=== PATIENT | male | born 2000 | race Caucasian/White ===

== ENCOUNTER 2021-06-07 15:24 | Emergency (ER) | payer BC, OTHER ==
[~2021-06-07] VITALS: Ht 172.7 cm; Wt 59.0 kg
[2021-06-07 15:30] VITALS: BP 139/68
--- NOTE | 2021-06-07 15:49 | ED Neurological Problem ---
General Chief Complaint: Neurological Problems Stated Complaint: FACE NUMBNESS Source: patient Exam Limitations: no limitations History of Present Illness Date Seen by Provider: Jun 07, 2021 Time Seen by Provider: 15:34 Initial Comments 21-year-old male presents with right-sided facial numbness, occurring today while at work. Denies any facial weakness. History of present illness patient midst to the past several months of having intermittent facial numbness of the right or left side of his face, occasionally both sides of his face that lasted less than 30 minutes, often, but not always occurring after using marijuana. His initial episode occurred after using acid. Denies any weakness, difficulty speaking or swallowing, any headache, loss of weight or incoordination. Denies any visual changes. No other significant past medical history. Allergies and Home Medications Patient Home Medication List Home Medication List Reviewed: Yes Review of Systems Review of Systems Constitutional: No dizziness, No fever, No malaise, No weakness Eyes: No Symptoms Reported Ears, Nose, Mouth, Throat: no symptoms reported Respiratory: No cough, No short of breath Cardiovascular: No chest pain, No edema, No palpitations Gastrointestinal: No abdominal pain, No nausea, No vomiting Musculoskeletal: No back pain, No joint pain, No neck pain Psychiatric/Neurological: Denies Emotional Problems, Denies Headache; Numbness, Tingling; Denies Weakness Past Auzyvnw-Vbhwdu-Mzwymz Hx Patient Social History Tobacco Use?: No Smoking Status: Never a Smoker Substance use?: Yes Substance type: Marijuana, Other (acid) Alcohol Use?: No Pt feels they are or have been: No Physical Exam Vital Signs Vital Signs - First Documented 06/07/21 15:30 Temp 36.6 Pulse 85 Resp 16 B/P (MAP) 139/68 (91) Pulse Ox 98 O2 Delivery Room Air Capillary Refill : Height, Weight, BMI Height: '" Weight: lbs. oz. kg; BMI Method: General Appearance: WD/WN, no apparent distress HEENT: PERRL/EOMI, normal ENT inspection Neck: non-tender, supple Respiratory: chest non-tender, lungs clear Cardiovascular: regular rate, rhythm, no JVD Gastrointestinal: normal bowel sounds, non tender, soft Back: normal inspection, no CVA tenderness Extremities: normal range of motion, non-tender Neurologic/Psychiatric: no motor/sensory deficits, alert, normal mood/affect, oriented x 3 Crainal Nerves: normal hearing, normal speech, PERRL, abnormal eye position; No facial asymmetry, No facial droop, No facial paresthesias, No facial weakness, No gaze palsy Coordination/Gait: normal finger to nose, normal gait Motor/Sensory: no motor deficit, no sensory deficit, no pronator drift Skin: normal color, warm/dry Stroke NIH Stroke Scale Assessment Select: Initial Level of Consciousness: 0=Alert (0), Level of Consciousness-Questions: 0=Answers both month/age (0), LOC Commands: 0=Performs both tasks (0), Gaze: Normal (0), Visual Mckay: 0=No visual loss (0), Facial Movement (Facial Paresis): 0=Normal symmetrical mnt (0), Motor Function-Arms Right: 0=No drift (0), Motor Function-Arms Left: 0=No drift (0), Motor Function-Legs Right: 0=No drift (0), Motor Function-Legs Left: 0=No drift (0), Limb Ataxia: 0=Absent (0), Sensory: 0=Normal:no loss (0), Best Language: 0=No aphasia (0), Dysarthria: 0=Normal (0), Extinction & Inattention: 0=No abnormality (0), Total: 0 Progress/Results/Core Measures Results/Orders My Orders Orders - NIKI DRUMMOND DO Ct Head Wo (06/07/21 15:43) Vital Signs/I&O 06/07/21 15:30 Temp 36.6 Pulse 85 Resp 16 B/P (MAP) 139/68 (91) Pulse Ox 98 O2 Delivery Room Air Departure Impression Primary Impression: Facial paresthesia Disposition: 01 HOME, SELF-CARE Condition: Stable Departure-Patient Inst. Decision time for Depature: 15:49 Referrals: GÉNESIS ALVAREZ MD (PCP/Family) Primary Care Physician Patient Instructions: Paresthesia (DC) Add. Discharge Instructions: Follow up with Dr Alvarez in 2 weeks, ER sooner if worse and unable to see Dr Alvarez All discharge instructions reviewed with patient and/or family. Voiced understanding. NIKI DRUMMOND DO Jun 07, 2021 15:49
--- NOTE | 2021-06-07 16:01 | Diagnostic Imaging Report ---
PROCEDURE: CT head without contrast. TECHNIQUE: Multiple contiguous axial images were obtained through the brain without the use of intravenous contrast. Auto Exposure Controls were utilized during the CT exam to meet ALARA standards for radiation dose reduction. INDICATION: Facial paresthesia and headache. FINDINGS: Ventricles and sulci are within normal limits for size. Note is made of francisco cisterna magna. There is no hemorrhage detected. There is no abnormal mass effect or shift of midline structures. Calvarium is intact and the visualized paranasal sinuses are clear. IMPRESSION: No acute abnormality is detected. Dictated by: Dictated on workstation # [id number]
== END 2021-06-07 16:10 | disposition home or self-care (01) ==
LOC: ER FS 15:26
DX: R20.2 Paresthesia of skin (principal)
CPT/HCPCS: 70450